=== PATIENT | female | born 1995 | race African-American/Black ===

== ENCOUNTER 2017-01-01 11:31 | Emergency (ER) | payer MEDICAID ==
[~2017-01-01] VITALS: Ht 157.5 cm; Wt 63.5 kg
[2017-01-01 13:03] VITALS: BP 120/72
[2017-01-01] MEDS ORDERED: PREN1TAB58 PO (14:05)
--- NOTE | 2017-01-01 14:06 | PHYS DOC ---
Past Medical History Past Medical History: No Pertinent History Past Surgical History: No Surgical History Additional Information: Nonsmoker Alcohol Use: None Drug Use: None Adult General Chief Complaint Chief Complaint: TEST [facility] HPI Patient is a 21 year old female who presents with a missed period and low back pain. Her last period was on . She states she usually has very regular periods. She's had 3 previous pregnancies with 3 live births. Her low back pain started 4 days ago. The pain is diffuse across the lumbar region without radiation. She denies any injury to her back. She has had nausea and vomiting intermittently for the past few weeks. She is able to eat without emesis. She denies any focal weakness or numbness. She does not have any incontinence or saddle anesthesia. She denies abdominal pain, urinary symptoms, vaginal bleeding , or vaginal discharge. She sees a PCP at [facility]. She does not currently have an OB doctor. Review of Systems Review of Systems Constitutional: Denies fever or chills. [] Eyes: Denies change in visual acuity, redness, or eye pain. [] HENT: Denies ear pain, nasal congestion or sore throat. [] Respiratory: Denies cough or shortness of breath. [] Cardiovascular: Denies chest pain, palpitations or edema. [] GI: Denies abdominal pain,bloody stools or diarrhea. Reports intermittent nausea and vomiting. : Denies dysuria, hematuria or urinary frequency. Denies vaginal bleeding or discharge. Musculoskeletal: Denies joint pain. Reports low-back pain. Integument: Denies rash or skin lesions. [] Neurologic: Denies headache, focal weakness or sensory changes. Denies incontinence or saddle anesthesia. Endocrine: Denies polyuria or polydipsia. [] Psych: Denies anxiety or depression. [] All systems reviewed and negative unless otherwise stated in the HPI. Allergies Allergies Allergies Coded Allergies Type Severity Reaction Last Updated Verified No Known Drug Allergies 01/01/17 No Physical Exam Physical Exam Constitutional: Well developed, well nourished, no acute distress, non-toxic appearance. [] HENT: Normocephalic, atraumatic, oropharynx moist. [] Eyes: PERRLA, EOMI, conjunctiva normal, no discharge. [] Neck: Normal range of motion, no tenderness, supple, no stridor. [] Cardiovascular: Heart rate regular rhythm, no murmur. [] Lungs & Thorax: Bilateral breath sounds clear to auscultation without wheezes, rales, or rhonchi. [] Abdomen: Bowel sounds normal, soft, no tenderness, no masses, no pulsatile masses. [] Skin: Warm, dry, no erythema, no rash. [] Back: No midline tenderness, no CVA tenderness. Bilateral lumbar paraspinal muscle tenderness and spasm. Straight leg raise negative bilaterally. Extremities: No tenderness, ROM intact, no edema. Distal pulses equal bilaterally. Neurovascularly intact distally. Neurologic: Alert and oriented X 3, normal motor function, normal sensory function, no focal deficits noted. [] Psychologic: Affect normal, judgement normal, mood normal. [] Current Patient Data Vital Signs Vital Signs Date Time Temp Pulse Resp B/P Pulse Ox O2 Delivery O2 Flow Rate FiO2 01/01/17 13:03 98.6 67 16 120/72 99 Room Air 98.6 Lab Values Laboratory Tests Test 01/01/17 12:03 POC Urine HCG, Qualitative Hcg positive (Negative) EKG EKG [] Radiology/Procedures Radiology/Procedures [] Course & Med Decision Making Course & Med Decision Making Pertinent Labs and Imaging studies reviewed. (See chart for details) Patient presents with missed period and low back pain. Urine hCG is positive. On exam, she has diffuse lower back pain without neurologic deficits. She is neurovascularly intact. She is instructed to take Tylenol for her low back pain. She is discharged with prescription for vitamins. She is given contact information for OB is instructed to follow-up for routine care. Return precautions were discussed. She verbalizes understanding and agrees with plan. Dragon Disclaimer Dragon Disclaimer This electronic medical record was generated, in whole or in part, using a voice recognition dictation system. Departure Departure Impression: Primary Impression: Additional Impression: Low back pain Disposition: 01 HOME, SELF-CARE Condition: STABLE Referrals: ANUJ BURNETT Jr, MD Patient Instructions: Back Pain in , Additional Instructions: Your test was positive today. Please begin taking the prescribed vitamins daily. Please follow-up with the OB doctor listed below for routine care. You may take Tylenol to help with your back pain. Ibuprofen is not recommended during . Return to the emergency department if you have abdominal pain, vaginal bleeding , or other new or concerning symptoms. Scripts Vits W-Ca,Fe,Fa(<1MG) ( Vitamins)1 Each Tablet1 Each PO DAILY # 30 Prov:TIMMY EDWARDS 01/01/17 Problem Qualifiers Primary Impression: Weeks of gestation: unspecified Qualified Code: Z33.1 - state, incidental Additional Impression: Low back pain Chronicity: acute Back pain laterality: bilateral Sciatica presence: without sciatica Qualified Code: M54.5 - Low back pain TIMMY EDWARDS Jan 01, 2017 14:06
== END 2017-01-01 14:14 | disposition home or self-care (01) ==
LOC: EDBD 11:31 → ER 11:31
DX: O26.891 Other specified pregnancy related conditions, first trimester (principal); M54.5 Low back pain
CPT/HCPCS: 81025; 99282